=== PATIENT | female | born 1975 | race Caucasian/White ===

== ENCOUNTER 2016-10-03 00:47 | Emergency (ER) | payer OTHER ==
[~2016-10-03] VITALS: Ht 172.7 cm; Wt 72.6 kg
[2016-10-03 01:34] LABS: CALCIUM 9.2 mg/dL (8.5-10.1); GFR 61.1; POTASSIUM 3.5 mmol/L (3.5-5.1)
[2016-10-03 01:39] LABS: ALBUMIN 3.7 g/dL (3.4-5.0); DIRECT BILIRUBIN 0.1 mg/dL (0.0-0.2); TOTAL BILIRUBIN 0.2 mg/dL (0.2-1.0); TOTAL PROTEIN 7.1 g/dL (6.4-8.2)
[2016-10-03] MEDS ORDERED: ONDANSETRON PF 4 MG/2 ML VIAL. IV ONE (02:00)
[2016-10-03] MEDS ORDERED: KETOROLAC TROMETHAMINE 30 MG/ML INJ. IV ONE (02:00)
--- NOTE | 2016-10-03 02:38 | RAD ---
PROCEDURE Ultrasound limited abdomen HISTORY Right upper quadrant pain and nausea vomiting for 5 hours TECHNIQUE Sonographic examination right upper quadrant was performed and multiple static images were obtained. FINDINGS There is a single mobile stones in the gallbladder but no wall thickening surrounding fluid or tenderness. The majority liver is visualized appears homogeneous. The right kidney is seen without hydronephrosis measures 9.9 centimeters in length. The pancreas appears normal although the tail is not well seen overlying bowel gas. The common bile duct appears normal measures 2.4 millimeters in diameter. Visualized portion of the abdominal aorta and IVC appear normal. IMPRESSION Cholelithiasis. No evidence of acute cholecystitis. No acute findings. Electronically signed by: Alejandro Lozoya MD (Oct 03, 2016 02:36:58)
[2016-10-03] MEDS ORDERED: ONDA4TAB10 SL (02:53)
--- NOTE | 2016-10-03 02:53 | PHYS DOC ---
Past Medical History Past Medical History: No Pertinent History Past Surgical History: Tubal ligation Additional Past Surgical Histo: UMBILICAL HERNIA Alcohol Use: Occasionally Drug Use: None Adult General Chief Complaint Chief Complaint: ABDOMINAL PAIN HPI HPI Patient is a 41 year old female who presents with for evaluation of right upper quadrant abdominal pain that has been intermittent over the past few days. States pain has been constant, achy, severe, starting a couple hours after eating dinner this evening. She notes nausea and vomiting that was nonbloody nonbilious prior to arrival. She denies chest pain, cough, dyspnea, fever or chills, diarrhea, dysuria, hematuria. Review of Systems Review of Systems Constitutional: Denies fever or chills [] Eyes: Denies change in visual acuity, redness, or eye pain [] HENT: Denies nasal congestion or sore throat [] Respiratory: Denies cough or shortness of breath [] Cardiovascular: No additional information not addressed in HPI [] GI: Denies bloody stools or diarrhea [] : Denies dysuria or hematuria [] Musculoskeletal: Denies back pain or joint pain [] Integument: Denies rash or skin lesions [] Neurologic: Denies headache, focal weakness or sensory changes [] Endocrine: Denies polyuria or polydipsia [] Current Medications Current Medications Current Medications Medications (Trade) Dose Ordered Sig/Robb Start Time Stop Time Status Last Admin Dose Admin Ketorolac Tromethamine (Toradol) 15 mg 1X ONCE 10/03/16 02:00 10/03/16 02:01 DC 10/03/16 01:57 15 MG Ondansetron HCl (Zofran) 4 mg 1X ONCE 10/03/16 02:00 10/03/16 02:01 DC 10/03/16 01:57 4 MG Allergies Allergies Allergies Coded Allergies Type Severity Reaction Last Updated Verified No Known Drug Allergies 10/03/16 No Physical Exam Physical Exam Constitutional: Well developed, well nourished, no acute distress, non-toxic appearance. [] HENT: Normocephalic, atraumatic, bilateral external ears normal, oropharynx moist, nose normal. [] Eyes: PERRLA, EOMI. [] Neck: Normal range of motion, supple. [] Cardiovascular:Heart rate regular rhythm, no murmur [] Lungs & Thorax: Bilateral breath sounds clear to auscultation [] Abdomen: Bowel sounds normal, soft, mild right upper quadrant tenderness, no guarding or rebound. [] Skin: Warm, dry, no erythema, no rash. [] Back: No tenderness, no CVA tenderness. [] Extremities: No tenderness, ROM intact, no edema. [] Neurologic: Alert and oriented X 3, normal motor function, normal sensory function, no focal deficits noted. [] Psychologic: Affect normal, judgement normal, mood normal. [] Current Patient Data Vital Signs Vital Signs Date Time Temp Pulse Resp B/P Pulse Ox O2 Delivery O2 Flow Rate FiO2 10/03/16 03:00 54 16 111/63 97 Room Air 10/03/16 00:55 98.7 98.7 Lab Values Laboratory Tests Test 10/03/16 01:10 Sodium Level 143mmol/L (136-145) Potassium Level 3.5mmol/L (3.5-5.1) Chloride Level 107mmol/L (98-107) Carbon Dioxide Level 28mmol/L (21-32) Anion Gap 8 (6-14) Blood Urea Nitrogen 17mg/dL (7-20) Creatinine 1.0mg/dL (0.6-1.0) Estimated GFR (Cockcroft-Gault) 61.1 Glucose Level 117mg/dL (70-99) H Calcium Level 9.2mg/dL (8.5-10.1) Total Bilirubin 0.2mg/dL (0.2-1.0) Direct Bilirubin 0.1mg/dL (0.0-0.2) Aspartate Amino Transferase (AST) 16U/L (15-37) Alanine Aminotransferase (ALT) 30U/L (14-59) Alkaline Phosphatase 43U/L (46-116) L Total Protein 7.1g/dL (6.4-8.2) Albumin 3.7g/dL (3.4-5.0) Lipase 161U/L (73-393) Laboratory Tests 10/03/16 01:10 Radiology/Procedures Radiology/Procedures Abdominal ultrasound IMPRESSION Cholelithiasis. No evidence of acute cholecystitis. No acute findings. Electronically signed by: Alejandro Lozoya MD (Oct 03, 2016 02:36:58) Course & Med Decision Making Course & Med Decision Making Pertinent Labs and Imaging studies reviewed. (See chart for details) Imaging as above. Laboratory evaluation is unremarkable. She is feeling much better after medications. Discussed symptomatic care for symptomatic cholelithiasis. Follow-up instructions given. Return precautions given. She understands and agrees with plan. Jane Disclaimer Jane Disclaimer This electronic medical record was generated, in whole or in part, using a voice recognition dictation system. Departure Departure Impression: Primary Impression: Symptomatic cholelithiasis Disposition: HOME, SELF-CARE Condition: STABLE Referrals: VICTORIA BARRIENTOS MD Patient Instructions: Cholelithiasis, [id number] Additional Instructions: Take ibuprofen as needed for pain. Take Zofran as needed for nausea. Follow-up with your primary care doctor in general surgery clinic. Please call for appointment. Return for any concerns. Scripts Ondansetron (Zofran Odt)4 Mg Tab.rapdis1 Tab SL Q8HRS #10 TAB Prov:Jonel HITCHCOCK MD 10/03/16 Jonel HITCHCOCK MD Oct 03, 2016 02:53
[2016-10-03 03:00] VITALS: BP 111/63
== END 2016-10-03 03:05 | disposition home or self-care (01) ==
LOC: ER 00:47
DX: K80.20 Calculus of gallbladder without cholecystitis without obstruction (principal); Z98.51 Tubal ligation status; Z98.890 Other specified postprocedural states
CPT/HCPCS: 36415; 76705; 80048; 80076; 81025; 83690; 96374; 96375; 99285; J1885; J2405

== ENCOUNTER → 2016-10-30 | Outpatient (CLI) | payer OTHER ==
[2016-10-03 03:00] VITALS: BP 111/63
[~2016-10-30] MED LIST: NORG1TAB34 PO; ONDA4TAB10 SL
[2016-10-30 10:33] LABS: BASO # 0.1 x10^3/uL (0.0-0.2); BASO % 1 % (0-3); EOS % 1 % (0-3); HEMATOCRIT 40.5 % (36.0-47.0); LYMPH # 1.9 x10^3/uL (1.0-4.8); LYMPH % 31 % (24-48); MEAN CORPUSCULAR HEMOGLOBIN 28 pg (25-35); MEAN CORPUSCULAR HGB CONC 35 g/dL (31-37); MEAN CORPUSCULAR VOLUME 82 fL (79-100); MONO % 10 % (0-9); NEUT % 58 % (31-73); PLATELET COUNT 188 x10^3/uL (140-400); RED BLOOD COUNT 4.95 x10^6/uL (3.50-5.40); RED CELL DISTRIBUTION WIDTH 13.4 % (11.5-14.5); WHITE BLOOD COUNT 6.1 x10^3/uL (4.0-11.0)
[2016-10-30 10:44] LABS: ALBUMIN 3.8 g/dL (3.4-5.0); GFR 61.1; POTASSIUM 4.2 mmol/L (3.5-5.1); TOTAL BILIRUBIN 0.5 mg/dL (0.2-1.0)
== END | disposition home or self-care (01) ==
LOC: SURGPAT 09:35
PROVIDERS: ATTEND Surgery
DX: Z01.812 Encounter for preprocedural laboratory examination (principal)
CPT/HCPCS: 36415; 80048; 82040; 82247; 85027

== ENCOUNTER → 2016-11-07 | Day surgery (SDC) | payer OTHER ==
[~2016-11-07] VITALS: Ht 172.7 cm; Wt 72.1 kg
[~2016-11-07] MED LIST changes: +BUPIVAC MPF-EPI 0.5%-1:200000 30 ML VIAL. ONE; +DEXAMETHASONE SOD PHOS 20 MG/5 ML VIAL. ONE; +FAMOTIDINE 20 MG/2 ML VIAL ONE; +GLUCAGON,HUMAN RECOMBINANT 1 MG/ML VIAL. ONE; +GLYCOPYRROLATE 1 MG/5 ML VIAL. ONE; +HYDROmorphone 2 MG/ML VIAL IV PRN; +IOHEXOL 300 MG/ML 50 ML VIAL. ONE; +IV RINGERS,LACTATED 1000ML 1,000 ML IV SCH; +KETOROLAC 60 MG/2 ML INJ FOR OR. ONE; +LIDOCAINE 1% 1 ML SYRINGE. ID PRN; +LIDOCAINE 2% 100 MG/5 ML SYRINGE. ONE; +MIDAZOLAM HCL/PF 2 MG/2 ML VIAL. ONE; +MORPHINE SULFATE 2 MG/ML DISP.SYRIN. IV PRN; +NEOSTIGMINE METHYLSULFATE 5 MG/5 ML SYRINGE. ONE; +ONDANSETRON PF 4 MG/2 ML VIAL. IV PRN; +ONDANSETRON PF 4 MG/2 ML VIAL. ONE; +PROCHLORPERAZINE 10 MG/2 ML VIAL. IV PRN; +PROPOFOL 20 ML IV ONE; +ROCURONIUM 50 MG/5 ML VIAL. ONE; +SEVOFLURANE 61 TO 120 MINUTES. IH ONE; +SURGICEL HEMOSTAT 4X8 EACH. ONE; +fentaNYL PF VIAL 100 MCG/2 ML VIAL IV PRN; +fentaNYL PF VIAL 100 MCG/2 ML VIAL ONE
[2016-11-07 10:25] LABS: NEG OBC UR NEG; POS OBC UR POS
--- NOTE | 2016-11-07 11:20 | RAD ---
Exam performed: Intraoperative cholangiogram. Indication: Laparoscopic cholecystectomy. Date of Service:11/07/16 Fluroscopic Time: [ 0.24 minutes ] Discussion: 3 intraoperative C-arm radiographic images are obtained during laparoscopic cholecystectomy. The images demonstrate contrast opacification of the common bile duct without filling defects. There is also opacification of the proximal pancreatic duct. There is free spillage of contrast through the distal end into the duodenum. Impression: 1. Intraoperative cholangiogram demonstrates no evidence of filling defect or obstruction.
--- NOTE | 2016-11-07 12:05 | PDOC ---
BRIEF OPERATIVE NOTE Date: November 07, 2016 Pre-Op Diagnosis symptomatic cholelithiasis Post-Op Diagnosis same Procedure Performed l/s cholecystectomy with cholangiograms Surgeon Nacho Anesthesia Type: General Blood Loss 20cc IV Fluid 1000cc Specimens Obtained GB Findings supple GB with an island of liver tissue on the fundus, normal grams, very small LIH Complications none Additional Remarks Wk # [id number] ADI VASQUEZ MD November 07, 2016 12:05
--- NOTE | 2016-11-07 12:07 | DISCH ---
DISCHARGE INSTRUCTIONS Condition on Discharge Condition on Discharge: Stable Activity After Discharge Activity Instructions for Disc: Activity as tolerated, Avoid exertion Lifting Instructions after Dis: No heavy lifting Driving Instructions after Dis: Do not drive (2-3) Diet after Discharge Diet after Discharge: Regular Wound Incision Care Other wound/incision instructi: october Follow-Up Follow up with: Nacho 11/13 ADI VASQUEZ MD November 07, 2016 12:07
[2016-11-07 14:12] VITALS: BP 117/67
--- NOTE | 2016-11-07 16:46 | OP ---
DATE OF SURGERY: 11/07/2016 PREOPERATIVE DIAGNOSIS: Symptomatic cholelithiasis. POSTOPERATIVE DIAGNOSIS: Symptomatic cholelithiasis. PROCEDURE: Laparoscopic cholecystectomy with cholangiogram. SURGEON: Adi Vasquez MD. ANESTHESIA: General endotracheal. ESTIMATED BLOOD LOSS: 20. IV FLUIDS: 1 liter. 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 Ultrasound shows stones. She is brought for cholecystectomy. OPERATIVE FINDINGS: The liver was smooth and sharp. The gallbladder was supple. There was a small island of hepatic tissue on the fundus of the gallbladder. There was a very small indirect left inguinal hernia. Visual inspection of the remainder of the abdomen failed to reveal obvious abnormalities. DESCRIPTION OF PROCEDURE: The patient was brought to the Operating Suite, given a general endotracheal anesthetic, and the abdomen was prepped and draped in usual sterile fashion. A supraumbilical incision was infiltrated with local anesthetic, sharply incised, and a 5-mm Visiport was used to gain access into the abdominal cavity taking care to avoid injury to abdominal contents. Pneumoperitoneum was established. Camera was inserted, and inspection was carried out with results as noted above. With the table in reverse Trendelenburg rolled to the left, the epigastric and midclavicular ports were placed under direct vision. An "alligator grasper" was brought through the lateral port location, and the fundus of the gallbladder was grasped and retracted superolaterally. The cystic duct and cystic artery were isolated. The duct was clipped on the gallbladder side. Cholangiograms were made. These were normal. In light of this, the catheter was removed. The cystic duct was clipped x3 and divided taking care to avoid injury or compromise of the common duct. The cystic artery was then clipped and divided, and gallbladder was freed from the bed with cautery dissection and placed in an EndoCatch bag. A posterior vessel was identified in the lower third of the fossa and clipped before dividing. Good hemostasis was present. Table returned to level, gallbladder was delivered through the epigastric incision. Epigastric incision was closed with interrupted 0 Vicryl suture. Intra-abdominal pressure was decreased to 6 cm of water. No bleeding from the epigastric closure or from the midclavicular port site after its removal or from the previous location of the "alligator" grasper. Abdomen was decompressed, camera was slowly removed, no was bleeding seen. Skin incisions were closed with subcuticular 4-0 Monocryl. Steri-Strips and sterile dressings were applied. The patient was awakened from her anesthetic and taken to the Recovery Room in satisfactory condition. ADI VASQUEZ MD DR: CARLOS/thompson JOB#: [id number] / [id number]
--- NOTE | 2016-11-11 10:44 | PATHOLOGY ---
PATHOLOGY REPORT * * * * * * * * FINAL DIAGNOSIS: Gallbladder, cholecystectomy: - Chronic cholecystitis, mild. - Scant adjacent unremarkable liver parenchyma. - Cholelithiasis. (SKM:rhea; d/t: 11/10/2016) REPORT ELECTRONICALLY SIGNED BY: Edwige Bentley M.D. DATE/TIME: 11/11/2016 10:37 * * * * * * * * GROSS PATHOLOGY: Received in formalin labeled "Tish Abdul, gallbladder with contents," is a 8.2 x 2.6 x 2.6 cm, intact gallbladder with blue-proctor serosal surfaces. Opening the gallbladder reveals a velvety, bile-stained mucosa and an average wall thickness of 0.1 cm. A single light cartwright multinodular calculus is present and no masses are noted grossly. At the fundal aspect of the gallbladder, there is a small amount of attached red-brown liver tissue measuring 2.9 x 0.5 x 0.3 cm. Paper Wood Cutter sections from the body and fundus are submitted along with the proximal margin in cassette A1, to include the attached liver tissue.. (CAA; 11/09/2016) INITIAL CPT CODE(S): A; 01351 Professional services performed by [facility] at [address] [address] Technical services performed by [facility] at [address] [place] [address], [place] [address] [address]. SPECIMEN(S) RECEIVED: A.Gallbladder and contents CLINICAL HISTORY: Calculus of gallbladder PATIENT: TISH ABDUL /AGE: 802/15/1975 (Age: 41) PATIENT #: [id number] ALT CASE #: SPECIMEN COLLECTION DATE: 11/07/2016 SPECIMEN RECEIVED DATE: 11/07/2016 [facility] - [address] [place] [address] - PHONE: [phone] * * * END OF REPORT * * *
== END | disposition home or self-care (01) ==
LOC: SURG 09:42
PROVIDERS: ATTEND Surgery
DX: K80.20 Calculus of gallbladder without cholecystitis without obstruction (principal); Z98.51 Tubal ligation status; Z80.42 Family history of malignant neoplasm of prostate; Z82.49 Family history of ischemic heart disease and other diseases of the circulatory system; Z72.89 Other problems related to lifestyle
CPT/HCPCS: 47563; 74300; 81025; C1769; C1782; J0690; J0780; J1100; J1885; J2250; J2405; J2704; J2710; J3010; J3490; J7030; J7120; Q9967; S0028; 88304; J1610